=== PATIENT | male | born 2000 | race Caucasian/White ===

== ENCOUNTER 2022-04-12 17:50 | Emergency (ER) | payer SELFPAY ==
[~2022-04-12] VITALS: Ht 162.6 cm; Wt 65.8 kg
[2022-04-12 18:10] VITALS: BP 110/79
[2022-04-12] MEDS ORDERED: KETOROLAC 30 MG/ML VIAL IM ONE (19:40)
[2022-04-12] MEDS ORDERED: IBUP-2213 PO (19:57)
[2022-04-12] MEDS ORDERED: HYDROcodone/APAP 5/325 MG 1 TAB TAB PO ONE (20:00)
[2022-04-12 21:25] VITALS: BP 110/79
--- NOTE | 2022-04-12 21:25 | NUR ---
Patient discharged with v/s stable. Written and verbal after care instructions given and explained. Patient alert, oriented and verbalized understanding of instructions. Ambulatory with crutches. All questions addressed prior to discharge. ID band removed. Patient advised to follow up with PMD. Rx of ibuprofen given. Patient educated on indication of medication including possible reaction and side effects. Opportunity to ask questions provided and answered.
== END 2022-04-12 21:25 | disposition home or self-care (01) ==
LOC: MED 17:50
DX: S83.91XA Sprain of unspecified site of right knee, initial encounter (principal); W18.30XA Fall on same level, unspecified, initial encounter; Y93.89 Activity, other specified; Y92.89 Other specified places as the place of occurrence of the external cause; Y99.8 Other external cause status
CPT/HCPCS: 29505; 73562; 96372; 99283; J1885